=== PATIENT | female | born 1990 | race Caucasian/White ===

== ENCOUNTER 2020-12-08 10:06 | Emergency (ER) | payer OTHER ==
[~2020-12-08] VITALS: Ht 162.6 cm; Wt 61.7 kg
[2020-12-08] MEDS ORDERED: PRENATE ELITE1 EAC2 PO (10:41)
[2020-12-08] MEDS ORDERED: ZITHROMAX200 MG PO (15:20)
== END 2020-12-08 15:51 | disposition home or self-care (01) ==
LOC: ER 10:06
DX: B34.9 Viral infection, unspecified (principal); Z03.818 Encounter for observation for suspected exposure to other biological agents ruled out; Z3A.17 17 weeks gestation of pregnancy

== ENCOUNTER 2021-04-24 09:12 | Outpatient (CLI) | payer OTHER ==
[~2021-04-24 09:12] MED LIST: PRENATE ELITE1 EAC2 PO; ZITHROMAX200 MG PO
== END 2021-04-24 10:18 | disposition home or self-care (01) ==
LOC: NST 09:12
PROVIDERS: ATTEND Obstetrics & Gynecology
DX: Z34.83 Encounter for supervision of other normal pregnancy, third trimester (principal)

== ENCOUNTER 2021-04-24 12:38 | Inpatient (IN) | payer OTHER | END 2021-04-25 13:37 | disposition home or self-care (01) | DRG 833 | LOC: OB/GYN 12:38 | PROVIDERS: ADMIT Obstetrics & Gynecology; ATTEND Obstetrics & Gynecology | PROC: BW40ZZZ Ultrasonography of Abdomen (ICD-10-PCS; principal; 2021-04-24) | PROC: BT4JZZZ Ultrasonography of Kidneys and Bladder (ICD-10-PCS; 2021-04-24) | DX: O23.03 Infections of kidney in pregnancy, third trimester (principal); E86.0 Dehydration; Z3A.35 35 weeks gestation of pregnancy ==

== ENCOUNTER 2021-05-19 14:48 | Inpatient (IN) | payer OTHER ==
[~2021-05-19] VITALS: Ht 165.1 cm; Wt 77.1 kg
[2021-05-20] MEDS ORDERED: LANSOPRAZOLE30 MG (08:23)
== END 2021-05-23 13:56 | disposition home or self-care (01) | DRG 788 ==
LOC: LDR 14:48 → OB/GYN 05-20 16:15
PROVIDERS: ADMIT Obstetrics & Gynecology; ATTEND Obstetrics & Gynecology
PROC: 4A1HXCZ Monitoring of Products of Conception, Cardiac Rate, External Approach (ICD-10-PCS; 2021-05-19)
PROC: 3E033VJ Introduction of Other Hormone into Peripheral Vein, Percutaneous Approach (ICD-10-PCS; 2021-05-19)
PROC: 10D00Z1 Extraction of Products of Conception, Low, Open Approach (ICD-10-PCS; principal; 2021-05-20 14:45)
DX: O61.0 Failed medical induction of labor (principal); O36.63X0 Maternal care for excessive fetal growth, third trimester, not applicable or unspecified; Z3A.39 39 weeks gestation of pregnancy; Z37.0 Single live birth; Z20.822 Contact with and (suspected) exposure to COVID-19